=== PATIENT | male | born 1975 | race African-American/Black ===

== ENCOUNTER 2024-08-28 07:23 | Emergency (ER) | payer SELFPAY ==
[2024-08-28 07:29] VITALS: BP 167/86; PULSE 59; TEMP 36.9; O2SAT 100; BMI 28.3
--- NOTE | 2024-08-28 07:46 | ECG_ITS ---
[facility] Test Date: 2024-08-28 Pat Name: CAMMY STRATTON Department: Room: - Gender: Male Trichologist: : [id number] Requested By: [id number] Order Number: [id number] Reading MD: MEGAN ANGELO M.D. Measurements Intervals [place] Rate: 54 P: 67 PA: 208 QRS: 69 QRSD: 118 T: 50 QT: 412 QTc: 399 Interpretive Statements 1100 Sinus rhythm 2320 Nonspecific intraventricular conduction delay 9130 borderline ECG No previous ECG available for comparison Electronically Signed On 08-29-2024 21:40:29 EDT by MEGAN ANGELO M.D.
[2024-08-28 08:14] LABS: Basophils Percent Auto 0.6 % (0.2-2.0); Eosinophils Absolute Auto 0.5 10^3/uL (0.0-0.7); Eosinophils Percent Auto 7.2 % (0.9-7.0); Hematocrit 41.5 % (42.0-54.0); Hemoglobin 13.7 g/dL (14.0-18.0); Immature Granulocytes Abs Auto 0.01 10^3/uL (0.00-0.03); Immature Granulocytes Pct Auto 0.2 % (0.0-0.5); Lymphocytes Absolute Auto 1.4 10^3/uL (1.2-3.8); Lymphocytes Percent Auto 22.8 % (20.5-60.0); Mean Corpuscular Hemoglobin 28.2 pg (25.9-34.0); Mean Corpuscular Volume 85.6 fL (80.0-94.0); Mean Platelet Volume 8.4 fL (9.5-13.5); Monocytes Absolute Auto 0.6 10^3/uL (0.3-0.8); Monocytes Percent Auto 9.1 % (1.7-12.0); Neutrophils Absolute Auto 3.8 10^3/uL (1.4-6.5); Neutrophils Percent Auto 60.1 % (43.0-75.0); Platelet Count 245 10^3/uL (150-450); Red Blood Count 4.85 10^6/uL (4.70-6.10); Red Cell Distribution Width 14.4 % (11.0-15.0); White Blood Count 6.3 10^3/uL (4.0-11.0)
[2024-08-28 08:24] VITALS: BP 137/88; PULSE 51; O2SAT 98
[2024-08-28 08:27] LABS: Alanine Aminotransferase 30 U/L (16-63); Albumin Globulin Ratio 1.1; Albumin Level 3.6 g/dL (3.4-5.0); Alkaline Phosphatase 113 U/L (46-116); Anion Gap 11.8; Aspartate Amino Transferase 27 U/L (15-37); BUN Creatinine Ratio 8.7; Bilirubin Total 0.2 mg/dL (0.2-1.0); Calcium 8.8 mg/dL (8.5-10.1); Chloride 107 mmol/L (98-107); Estimated GFR (African America >60 (>=60 mL/min/1.73m^2); Estimated GFR (Non-African Ame >60 (>=60 mL/min/1.73m^2); Globulin 3.4 g/dL; Glucose 95 mg/dL (74-106); Potassium 3.8 mmol/L (3.5-5.1); Sodium 143 mmol/L (136-145); Troponin I High Sensitivity 9.4 pg/mL (4.0-76.1)
--- NOTE | 2024-08-28 08:52 | ED.GENADUL1 ---
HPI HPI - General Adult General Chief complaint: Recheck/Abnormal Lab/Rx Stated complaint: HIGH BLOOD PRESSURE Time Seen by Provider: 08/28/24 07:35 Source: patient Mode of arrival: walk-in History of Present Illness HPI narrative: The patient is coming to the ER with a concern that he was feeling his heart racing for few seconds when he went and measured his blood pressure he found that it was elevated and he came to us, there is no chest pain at any time no nausea no vomiting no difficulty breathing and no sweating, this episode was only for few seconds by the time he went to see his blood pressure he was already feeling better, it started while he was at work standing, there was no exertion he did not do anything more than his usual activities, almost 2 weeks ago the patient had an evaluation for chest pain at that time he was supposed to get a stress test with outpatient, and the workup was negative The patient smokes cigarettes 1 cigar a day Related Data Home Medications ?Medication ?Instructions ?Recorded ?Confirmed No Known Home Medications 08/28/24 08/28/24 Allergies Allergy/AdvReac Type Severity Reaction Status Date / Time No Known Drug Allergies Allergy Verified 08/28/24 07:33 Opioid HPI Opioid Management Most Recent Opioid Data: No Data to Display Review of Systems ROS Status of ROS 10 or more systems reviewed and unremarkable except as noted in history and below PFSH PFSH Social History Little interest or pleasure in doing things: not at all Feeling down, depressed, or hopeless: not at all Exam Narrative Exam Narrative: Nurses notes and vital signs reviewed and patient is not hypoxic. General: Well-appearing and in no apparent distress. Skin: Warm, dry, no pallor noted. No rash. Head: Normocephalic, atraumatic. Neck: Supple, non-tender. Cardiovascular: Regular Rate and Rhythm without murmur, gallop or rub. Respiratory: No accessory muscle use or respiratory distress. Lungs are clear to auscultation, no wheezing, rales or rhonchi Chest Wall: no tenderness Back: No midline thoracic or lumbar vertebral tenderness. No CVA tenderness Musculoskeletal: normal ROM, no calf or popliteal tenderness, no lower extremity edema/swelling GI: Abdomen is soft, non-distended. Normal bowel sounds. No masses appreciated. No tenderness to palpation. No rebound, guarding, or rigidity noted. Neurological: A&O x4. No cranial nerve dysfunction observed. Constitutional Vital Signs, click to edit/add: Last Vital Signs Temp 98.5 F 08/28/24 07:29 Pulse 60 08/28/24 08:57 Resp 18 08/28/24 08:57 BP 132/66 08/28/24 08:57 Pulse Ox 98 08/28/24 08:57 O2 Del Method Room Air 08/28/24 07:29 Course Vital Signs Vital signs: Vital Signs Temperature 98.5 F 08/28/24 07:29 Pulse Rate 59 L 08/28/24 07:29 Respiratory Rate 18 08/28/24 07:29 Blood Pressure 167/86 H 08/28/24 07:29 Pulse Oximetry 100 08/28/24 07:29 Oxygen Delivery Method Room Air 08/28/24 07:29 Temperature 98.5 F 08/28/24 07:29 Pulse Rate 60 08/28/24 08:57 Respiratory Rate 18 08/28/24 08:57 Blood Pressure 132/66 08/28/24 08:57 Pulse Oximetry 98 08/28/24 08:57 Oxygen Delivery Method Room Air 08/28/24 07:29 Medical Decision Making [facility] Narrative Medical decision making narrative: The patient EKG is sinus rhythm with heart rate of [address] elevation or depression The patient CBC and chemistry were within normal as well as troponin The patient presentation does not seem to be cardiac but he still have risk factor of smoking cigarettes and he have to follow-up with cardiology as outpatient for stress test I did explain to the patient the importance of follow-up explained to him also the importance of smoking cessation and the fact that he have to avoid exertion until he is evaluated by cardiology Patient blood pressure was 160 upon evaluation initially systolic and then it was 130 systolic before discharge The patient is to follow up with primary care physician in next 2-3 days or to return to the emergency department should any of the signs or symptoms worsen or new symptoms develop. The patient agrees with the following Diagnosis and Treatment plan and the patient will be discharged home. Lab Data Labs: Lab Results 08/28/24 Range/Units 08:04 WBC 6.3 (4.0-11.0) 10^3/uL RBC 4.85 (4.70-6.10) 10^6/uL Hgb 13.7 L (14.0-18.0) g/dL Hct 41.5 L (42.0-54.0) % MCV 85.6 (80.0-94.0) fL MCH 28.2 (25.9-34.0) pg MCHC 33.0 (29.9-35.2) g/dL RDW 14.4 (11.0-15.0) % Plt Count 245 (150-450) 10^3/uL MPV 8.4 L (9.5-13.5) fL Neut % (Auto) 60.1 (43.0-75.0) % Lymph % (Auto) 22.8 (20.5-60.0) % [place] % (Auto) 9.1 (1.7-12.0) % Eos % (Auto) 7.2 H (0.9-7.0) % Baso % (Auto) 0.6 (0.2-2.0) % Neut # (Auto) 3.8 (1.4-6.5) 10^3/uL Lymph # (Auto) 1.4 (1.2-3.8) 10^3/uL [place] # (Auto) 0.6 (0.3-0.8) 10^3/uL Eos # (Auto) 0.5 (0.0-0.7) 10^3/uL Baso # (Auto) 0.0 (0.0-0.1) 10^3/uL Abs Immat Gran (auto) 0.01 (0.00-0.03) 10^3/uL Imm/Tot Granulo (auto) 0.2 (0.0-0.5) % Sodium 143 (136-145) mmol/L Potassium 3.8 (3.5-5.1) mmol/L Chloride 107 (98-107) mmol/L Carbon Dioxide 28.0 (21.0-32.0) mmol/L Anion Gap 11.8 BUN 9.0 (7.0-18.0) mg/dL Creatinine 1.04 (0.70-1.30) mg/dL Est GFR ( Amer) >60 (>=60 mL/min/1.73m^2) Est GFR (Non-Af Amer) >60 (>=60 mL/min/1.73m^2) BUN/Creatinine Ratio 8.7 Glucose 95 (74-106) mg/dL Calcium 8.8 (8.5-10.1) mg/dL Total Bilirubin 0.2 (0.2-1.0) mg/dL AST 27 (15-37) U/L ALT 30 (16-63) U/L Alkaline Phosphatase 113 (46-116) U/L Troponin I High Sens 9.4 (4.0-76.1) pg/mL Total Protein 7.0 (6.4-8.2) g/dL Albumin 3.6 (3.4-5.0) g/dL Globulin 3.4 g/dL Albumin/Globulin Ratio 1.1 Discharge Plan Discharge Chief Complaint: Recheck/Abnormal Lab/Rx Clinical Impression: Palpitation Patient Disposition: Home, Self-Care Time of Disposition Decision: 08:53 Condition: Good Prescriptions / Home Meds: No Action No Known Home Medications Print Language: [place] Instructions: Heart Palpitations (DC) Referrals: Alex Jerry MD [Physician] - 1 week Physician,Non-Staff, [Primary Care Provider] - 1 week Discharge Date/Time: 08/28/24 08:58
[2024-08-28 08:57] VITALS: BP 132/66; PULSE 60; O2SAT 98
== END 2024-08-28 08:58 | disposition home or self-care (01) ==
PROVIDERS: Emergency Provider Emergency Medicine
DX: R00.2 Palpitations (principal); F17.210 Nicotine dependence, cigarettes, uncomplicated
CPT/HCPCS: 36415; 80053; 84484; 85025; 93005; 99284